=== PATIENT | male | born 1945 | race Caucasian/White ===

== ENCOUNTER 2016-07-26 18:05 | Emergency (ER) | payer OTHER, MEDICARE ==
[2016-07-26] MEDS ORDERED: PRINIVIL10 M1 PO (18:35)
[2016-07-26] MEDS ORDERED: NORVASC5 M2 PO (18:35)
[2016-07-26] MEDS ORDERED: TRICOR145 M2 PO (18:36)
[2016-07-26] MEDS ORDERED: PRAVASTATIN SOD40 M1 PO (18:37)
[2016-07-26] MEDS ORDERED: MULTIVITAMINS1 EAC6 PO (18:38)
[2016-07-26 18:39] LABS: BASO % 0.1 % (0-2); HCT-HEMATOCRIT 40.9 % (36.0-53.5); HGB-HEMOGLOBIN 14.1 gm/dl (13.5-17.0); IMMATURE GRANULOCYTES ABSOLUTE 0.15 tho/cmm (0-0.03); IMMATURE GRANULOCYTES PERCENT 0.6 % (0-0.3); LYMPH % 4.1 % (20-45); MCH (MEAN CORPUSCULAR HGB) 31.1 pg (28.0-32.0); MCHC MEAN CORPUSCULAR HGB CONC 34.5 % (32.0-36.0); MCV (MEAN CELL VOLUME) 90.1 fl (82.0-96.0); MEAN PLATELET VOLUME 10.1 cmc (9.4-12.4); MONO % 5.2 % (0-12); MONOCYTE ABSOLUTE COUNT 1.3 tho/cmm (0.0-1.2); NEUTROPHIL ABSOLUTE COUNT 22.8 tho/cmm (1.6-8.0); NEUTROPHIL-AUTOMATED 22.8 tho/cmm (1.6-8.0); PLATELET COUNT 318 tho/cmm (150-450); RED BLOOD COUNT 4.54 mil/cmm (4.40-5.70); RED CELL DISTRIBUTION WIDTH 13.4 % (12.4-16.4); WHITE BLOOD COUNT 25.4 tho/cmm (4.0-10.0)
[2016-07-26 18:52] LABS: ANION GAP 12 mmol/L (0-20); BLOOD UREA NITROGEN 22 mg/dl (6-24); CALCIUM 8.8 mg/dl (8.5-10.5); CARBON DIOXIDE-VENOUS 22 mmol/L (22-32); CHLORIDE 108 mmol/l (96-110); CREATININE 1.34 mg/dl (0.60-1.30); GLUCOSE 150 mg/dL (70-110); SODIUM 138 mmol/L (135-145); eGFR VALUE FOR BLACK 61 mL/Min
[2016-07-26 19:01] LABS: POTASSIUM 3.9 mmol/L (3.7-5.1)
[2016-07-26 19:30] LABS: URINE BILIRUBIN NEGATIVE (NEG); URINE BLOOD NEGATIVE (NEG); URINE GLUCOSE (UA) NEGATIVE (NEG); URINE KETONE NEGATIVE (NEG); URINE LEUKOCYTE ESTERASE NEGATIVE (NEG); URINE NITRITE NEGATIVE (NEG); URINE PROTEIN MODERATE (NEG)
[2016-07-26 19:33] LABS: URINE APPEARANCE HAZY; URINE COLOR YELLOW
[2016-07-26 19:41] LABS: URINE EPITHELIAL CELLS RARE /[HPF] (0-10); URINE MUCUS 1+; URINE RBC 0 /[HPF] (0-5); URINE WBC RARE /[HPF] (0-5)
[2016-07-26] MEDS ORDERED: LEVAQUIN750 M1 PO (21:12)
== END 2016-07-26 21:50 ==
LOC: EDMED 18:05
PROVIDERS: Emergency Medicine
DX: J18.9 Pneumonia, unspecified organism (principal); E86.0 Dehydration; I10 Essential (primary) hypertension; M54.9 Dorsalgia, unspecified; G89.29 Other chronic pain
CPT/HCPCS: J1956; J7030